=== PATIENT | male | born 1975 | race Caucasian/White ===

== ENCOUNTER 2021-11-20 20:46 | Emergency (ER) | payer OTHER ==
[2021-11-20 21:29] VITALS: O2SAT 98
[2021-11-20] MEDS ORDERED: Vibramycin 100 MG PO ONE (21:51)
--- NOTE | 2021-11-20 21:54 | ERPHSYRPT ---
- History of Present Illness Time Seen by Provider: 11/20/21 21:20 Source: patient Exam Limitations: no limitations Patient Subjective Stated Complaint: pt states he had a tick on his rt lower abd and now has redness, swelling and itching. states swelling started after he removed tick Triage Nursing Assessment: pt alert and oriented, answers questions approp. pt ambulatoryw ith steady gait noted. respirations nonlabored. skin pink warm and dry. insect bite to rt lower abd surrounded by redness and swelling, extending to rt flank. pt states he does not have pain but has itching. Physician History: Patient is a 46-year-old male presents to our ED for evaluation of cellulitis secondary to a tick bite. Patient observed a tick at the involved location today. The tick has been on for less than 24 hours. Tick was successfully removed. No residual foreign body. Patient now has an area of cellulitis that is tender red swollen and somewhat itchy. No trauma. No fever. No nausea vomiting or diaphoresis. Tetanus up-to-date. Symptoms are mild to moderate in intensity. No specific worsening improving factors. Patient denies history of the same. He has no known allergies. Patient voices no other complaints or concerns at this time. Timing/Duration: today Severity: moderate Modifying Factors: Improves With: nothing Associated Symptoms: denies symptoms Allergies/Adverse Reactions: No Known Drug Allergies Allergy (Verified 11/20/21 21:32) Hx Tetanus, Diphtheria Vaccination/Date Given: Yes (2014) Hx Influenza Vaccination/Date Given: No Hx Pneumococcal Vaccination/Date Given: No Immunizations Up to Date: Yes Travel Risk - International Travel Have you traveled outside of the country in past 3 weeks: No - Coronavirus Screening Are you exhibiting any of the following symptoms?: No Close contact with a COVID-19 positive Pt in past 14-21 Days: No - Vaccine Status Have you recieved a Covid-19 vaccination: No - Review of Systems Constitutional: No Symptoms, No Fever, No Chills Eyes: No Symptoms Ears, Nose, & Throat: No Symptoms Respiratory: No Symptoms, No Cough, No Dyspnea Cardiac: No Symptoms, No Chest Pain, No Edema, No Syncope Abdominal/Gastrointestinal: No Symptoms, No Abdominal Pain, No Nausea, No Vomiting, No Diarrhea Genitourinary Symptoms: No Symptoms, No Dysuria Musculoskeletal: No Symptoms, No Back Pain, No Neck Pain Skin: No Symptoms, No Rash Neurological: No Symptoms, No Dizziness, No Focal Weakness, No Sensory Changes Psychological: No Symptoms Endocrine: No Symptoms Hematologic/Lymphatic: No Symptoms Immunological/Allergic: No Symptoms All Other Systems: Reviewed and Negative - Past Medical History Pertinent Past Medical History: No - Past Surgical History Past Surgical History: No - Social History Smoking Status: Current every day smoker How long have you smoked: 28yrs Exposure to second hand smoke: No Patient Lives Alone: Yes - Nursing Vital Signs Nursing Vital Signs: Initial Vital Signs Temperature 98.1 F 11/20/21 21:15 Pulse Rate 91 H 11/20/21 21:15 Respiratory Rate 16 11/20/21 21:15 Blood Pressure 138/83 11/20/21 21:15 O2 Sat by Pulse Oximetry 98 11/20/21 21:15 Pain Scale Pain Intensity 0 - Physical Exam General Appearance: no apparent distress, alert Eye Exam: PERRL/EOMI, eyes nml inspection Ears, Nose, Throat Exam: normal ENT inspection, TMs normal, pharynx normal, moist mucous membranes Neck Exam: normal inspection, non-tender, supple, full range of motion Respiratory Exam: normal breath sounds, lungs clear, No respiratory distress Cardiovascular Exam: regular rate/rhythm, normal heart sounds, normal peripheral pulses Gastrointestinal/Abdomen Exam: soft, normal bowel sounds, No tenderness, No mass Back Exam: normal inspection, normal range of motion, No CVA tenderness, No vertebral tenderness Extremity Exam: normal inspection, normal range of motion, pelvis stable Neurologic Exam: alert, oriented x 3, cooperative, normal mood/affect, nml cerebellar function, nml station & gait, sensation nml, No motor deficits Skin Exam: normal color, warm, dry, other (There is a 5 x 7 cm area of cellulitis at the right belt line. No fluctuance. Mild induration. No open or draining lesions. No lymphangitis.), No rash Lymphatic Exam: No adenopathy SpO2 Interpretation: normal SpO2: 98 O2 Delivery: Room Air - Course Nursing assessment & vital signs reviewed: Yes Ordered Tests: Medication Summary Discontinued Medications Generic Name Dose Route Start Last Admin Trade Name Freq PRN Reason Stop Dose Admin Doxycycline Hyclate 100 mg 11/20/21 21:51 Doxycycline Hyclate 100 Mg Tablet PO 11/20/21 21:52 STAT ONE - Progress Progress: improved Progress Note: Patient reassessed. He feels well. Patient declined pain medication. Patient received a dose of doxycycline in our ED. A prescription for the same was forwarded to patient's pharmacy. Patient does not have a primary care doctor. Patient was referred to Dr. Álvarez. Patient agrees to follow-up as indicated within 48 hours for evaluation. Patient declined a work note. He voices no other complaints or concerns at this time. Will discharge home. Portions of this note were created with voice recognition technology. There may be grammatical, spelling, punctuation or sound alike errors 11/20/21 22:00 Counseled pt/family regarding: diagnosis, need for follow-up - Departure Departure Disposition: Home Clinical Impression: Tick bite, Cellulitis Condition: Stable Critical Care Time: No Referrals: DOCTOR,NO FAMILY [Primary Care Provider] - Follow up/PCP as directed MIRIAM ÁLVAREZ MD [ACTIVE STAFF] - Follow up/PCP as directed Additional Instructions: Discharge/Care Plan CELINE DUMONT was seen on 11/20/21 in the Emergency Room. The patient was counseled regarding Diagnosis,Lab results, Imaging studies, need for follow up and when to return to the Emergency Room. Prescriptions given: Discharge Note I have spoken with the patient and/or caregivers. I have explained the patient's condition, diagnosis and treatment plan based on the information available to me at this time. I have answered the patient's and/or caregiver's questions and addressed any concerns. The patient and/or caregivers have as good understanding of the patient's diagnosis, condition and treatment plan as can be expected at this point. The vital signs have been stable. The patient's condition is stable and appropriate for discharge from the emergency department. The patient will pursue further outpatient evaluation with the primary care physician or other designated or consulting physician as outlined in the discharge instructions. The patient and/or caregivers are agreeable to this plan of care and follow-up instructions have been explained in detail. The patient and/or caregivers have received these instruction. The patient/and or caregivers are aware that any significant change in condition or worsening of symptoms should prompt an immediate return to this or the closest emergency department or call 911. Prescriptions: Doxycycline Hyclate 100 mg [Vibramycin 100 MG] 100 mg PO BID #14 tab
[2021-11-20] MEDS ORDERED: Vibramycin 100 MG ONE (21:57)
[2021-11-20 22:02] VITALS: BP 118/74; PULSE 82
== END 2021-11-20 22:06 | disposition home or self-care (01) ==
LOC: ED 20:46
DX: S30.861A Insect bite (nonvenomous) of abdominal wall, initial encounter (principal); L03.311 Cellulitis of abdominal wall; W57.XXXA Bitten or stung by nonvenomous insect and other nonvenomous arthropods, initial encounter; Z72.0 Tobacco use; Z28.310 Unvaccinated for COVID-19
CPT/HCPCS: 99283; A9270-GY